=== PATIENT | male | born 1955 | race Caucasian/White ===

== ENCOUNTER 2018-10-25 18:29 | Emergency (ER) | payer OTHER ==
[2018-10-25] MEDS ORDERED: HYDROCODONE/APAP 5/325 TAB PO ONE (20:20)
[2018-10-25] MEDS ORDERED: AMOXICILLIN/CLAVULANATE POT 875/125 MG TAB PO ONE (20:20)
--- NOTE | 2018-10-25 20:25 | EDPHY ---
H & P Smoking Status: Never smoked Time Seen by Provider: 10/25/18 20:11 HPI/ROS: CHIEF COMPLAINT: Dog bite to left hand HISTORY OF PRESENT ILLNESS: Patient is a 63-year-old male here after being bit by his own dog at home today. He was bit on the left hand approximately 1 hr ago. He reports most pain to the base of the 3rd digit but also pain in the 2nd digit. He states he was trying to get his dog to lie down and is the dog bit him. He recently purchased the dog from the [employer]. Reports all shots are up-to-date. ROS As detailed in HPI (Nadeem Davey) Physical Exam: General: Alert and oriented. Nontoxic appearing. No acute distress HEENT: Pupils PERRLA. No oral lesions. Cardiopulmonary: Regular rate and rhythm. No lower extremity edema Skin: [place] warm and dry. Multiple superficial puncture wounds over the phalanx of the left hand and a 1 cm laceration over the proximal phalanx of the 3rd digit just distal to the MCP joint. There is no involvement of the joint. Muscle skeletal: Moving all 4 extremities. Equal strength in upper extremities and lower extremities. Full range of motion of all 5 digits in the left hand. Full sensation in all 5 digits. (Nadeem Davey) Constitutional: Initial Vital Signs Temperature (C) 36.8 C 10/25/18 18:45 Heart Rate 55 L 10/25/18 18:45 Respiratory Rate 16 10/25/18 18:45 Blood Pressure 159/101 H 10/25/18 18:45 O2 Sat (%) 94 10/25/18 18:45 O2 Delivery Mode Room Air Allergies/Adverse Reactions: clindamycin Allergy (Verified 10/25/18 18:45) Home Medications: Medication Instructions Recorded Amoxicillin/Clavulanate Pot 875 mg PO BID #14 tab 10/25/18 [Augmentin 875 MG TAB (*)] Valsartan 10/25/18 Medical Decision Making - Diagnostics Imaging Results: Imaging Impressions Hand X-Ray 10/25/18 20:19 Impression: No evidence for acute osseous abnormality left hand. No evidence for a radiopaque foreign body. ED Course/Re-evaluation: 63-year-old male here with dog bite to the left hand. He has no neurologic deficits that has full range of motion with normal strength of else's digits. X -ray reveals no bony injury. Exam also reveals no involvement of the joint or tendon. He is started on Augmentin after it was thoroughly irrigated. Splint was placed he will follow up in 2-3 days for wound re-evaluation and possible closure. (Nadeem Davey) I did not see this patient while he was in the emergency department. However his care was discussed with the PA while the patient was in the department. I agree with treatment plan and management (Bandar Soares) - Data Points Medications Given: Discontinued Medications Hydrocodone Bitart/Acetaminophen ([place] 5/325) 1 tab PO EDNOW ONE Stop: 10/25/18 20:21 Last Admin: 10/25/18 20:54 Dose: 1 tab Hydrocodone Bitart/Acetaminophen ([place] 5/325mg Prepack#6) 1 btl TAKEHOME EDNOW ONE Stop: 10/25/18 21:47 Last Admin: 10/25/18 21:54 Dose: 1 btl Amoxicillin/Clavulanate Potassium (Augmentin 875mg) 875 mg PO EDNOW ONE PRN Reason: Protocol Stop: 10/25/18 20:21 Last Admin: 10/25/18 20:54 Dose: 875 mg Departure - Departure Disposition: Home, Routine, Self-Care Clinical Impression: Dog bite of hand Condition: Good Instructions: Animal Bite (ED) Additional Instructions: Please wear the splint until you follow up in 2-3 days for wound check and possible wound closure. Take Augmentin the antibiotic twice a day for the next week to prevent infection. Return to the ER sooner if he develops fever, pus, redness around the wound. Referrals: Onur Massey MD [Primary Care Provider] - As per Instructions Prescriptions: Amoxicillin/Clavulanate Pot [Augmentin 875 MG TAB (*)] 875 mg PO BID #14 tab
[2018-10-25] MEDS ORDERED: HYDROCOD/APAP 5/325 PREPACK#6 BTL TAKEHOME ONE (21:46)
[2018-10-25 22:01] VITALS: BP 140/90
== END 2018-10-25 22:00 | disposition home or self-care (01) ==
PROC: 2W3FX1Z Immobilization of Left Hand using Splint (ICD-10-PCS; principal; 2018-10-25)
DX: S61.452A Open bite of left hand, initial encounter (principal); W54.0XXA Bitten by dog, initial encounter; Y93.K9 Activity, other involving animal care; Y92.9 Unspecified place or not applicable; Y99.9 Unspecified external cause status

== ENCOUNTER 2018-11-04 09:57 | Emergency (ER) | payer OTHER ==
[2018-11-04 10:02] VITALS: BP 138/87
--- NOTE | 2018-11-04 10:23 | EDPHY ---
HPI/HX/ROS/PE/MDM Narrative: CHIEF COMPLAINT: Left hand infection HPI: The patient is a 63 y/o male arriving with his complaining of increasing pain and swelling at the site of an infected dog bite on his left hand. He was bit by his newly adopted dog that is up-to-date on vaccinations 10 days ago and was seen in the ED that day. X-rays were negative for fracture, wound was cleaned, and he was started on Augmentin with referral to hand surgery for follow up. He developed an infection at the site that is now followed by Dr. Lerma. Dr. Lerma drained and cleaned the wound then packed it and refilled his Augmentin. Pain improved after this and drainage ceased. The wound was rechecked and packed a second time 2 days ago. Since then, he's developed increase pain around his 4th MCP joint extending towards his 3rd and 2nd digits and has noticed increased swelling and new drainage. He is scheduled for another follow up appointment and packing removal tomorrow, but due to worsening symptoms opted to come to the ED today. He denies fever or any other symptoms. REVIEW OF SYSTEMS: A comprehensive 10 system review of systems is otherwise negative aside from elements mentioned in the history of present illness. PMH: Hemochromatosis SOCIAL HISTORY: at bedside. Lives in [place]. Employed. Prior medical records reviewed including ED visit 10/25/18 for dog bite. PHYSICAL EXAM: General:Patient is alert, in no acute distress. ENT:Eyes are normal to inspection. ENT inspection normal. Neck: Normal inspection. Full range of motion. Respiratory:No respiratory distress. Cardiovascular: Normal cap refill. Skin: Normal color. No rash. Warm and dry. Extremities: Right hand: wound over dorsum of 4th MCP joint is partially sutured with packing in place that I removed. There is purulence in the open wound without eliot cellulitis. Tenderness extends to the base of the 3rd digit. No lymphangitis. Mild diffuse swelling. Normal appearance. Full range of motion. Neuro: Oriented x3. Normal motor function. Normal sensory function. ED Course: This is a 63 y/o male who presents with increasing pain, swelling, and drainage at the site of a dog bite that occurred 10 days ago. He is on Augmentin and is being treated by Dr. Andujar for this. Today, his pain worsened and is spreading from his 4th MCP joint towards his 2nd and 3rd digits. Plan to consult with Dr. Lerma, patient's hand specialist. 1028: Consulted with Jose David RIOS, ortho on-call for Dr. Lerma. He will contact the on-call physician and call me back. Dr. Morales, orthopedist, will assess patient in the ED. Dr. Morales assessed patient in the ED and does not recommend any changes to current treatment plan. Patient will be discharged with instructions to continue his Augmentin and follow up with his orthopedist tomorrow. Return precautions discussed. He is comfortable with this plan. General Time Seen by Provider: 11/04/18 10:10 Initial Vital Signs: Initial Vital Signs Temperature (C) 36.7 C 11/04/18 09:59 Heart Rate 67 11/04/18 09:59 Respiratory Rate 16 11/04/18 09:59 Blood Pressure 138/87 H 11/04/18 09:59 O2 Sat (%) 97 11/04/18 09:59 O2 Delivery Mode Room Air Allergies/Adverse Reactions: clindamycin Allergy (Verified 11/04/18 09:58) Home Medications: Medication Instructions Recorded Amoxicillin/Clavulanate Pot 875 mg PO BID #14 tab 10/25/18 [Augmentin 875 MG TAB (*)] Valsartan 10/25/18 Departure - Departure Disposition: Home, Routine, Self-Care Clinical Impression: Dog bite of hand Qualifiers: Encounter type: initial encounter Laterality: left Qualified Code(s): S61.452A - Open bite of left hand, initial encounter; W54.0XXA - Bitten by dog, initial encounter; W54.0XXA - Bitten by dog, initial encounter Condition: Good Instructions: Animal Bite (ED) Additional Instructions: 1. Continue Augmentin as prescribed. 2. Follow up with your orthopedist tomorrow as scheduled. 3. Return for worsening of condition. Referrals: Yonis Rodriguez MD [Medical Doctor] - As per Instructions Report Scribed for: José Rico Report Scribed by: Sandra Joseph Date of Report: 11/04/18 Time of Report: 10:23 Physician Review and Approval Statement: Portions of this note were transcribed by an ED scribe. I personally performed the history, physical exam, and medical decision making; and confirm the accuracy of the information in the transcribed note.
--- NOTE | 2018-11-04 20:41 | GCON ---
REASON FOR CONSULTATION: Left hand infection. HISTORY RELATIVE TO CONSULTATION: The patient is a 63-year-old who sustained a dog bite to his left hand. The patient developed an infection and underwent operative irrigation debridement. He is havi ng every other day wound packing and has been on oral antibiotics. He felt like his pain may be incr easing some today and presented to the emergency room. He additionally noted that there was some mur ky fluid discharge from his open wound. PHYSICAL EXAMINATION: SKIN: There is evidence of an incision along the dorsal aspect of the hand ad jacent to the 1st MCP joint. He is able to flex and extend his fingers with minimal discomfort. The re is no evidence of abscess or loculated fluid. With expression of fluid from the wound, a scant am ount of murky fluid is expressed. There is no evidence of any cellulitic changes extending proximall y or distally. ASSESSMENT: Left hand infection. PLAN: This does not appear to be significantly worsening nor to be putting his hand in danger. It d id not appear that an operative washout was warranted at this time. It was recommended that he luis nue his antibiotics and change his wound care regimen to daily instead of every other day. Use of a more dry gauze was additionally suggested. If he is having any worsening of symptoms, he will return to the emergency room at which point, an additional operative debridement may be considered. /[id number]/MODL
== END 2018-11-04 12:46 | disposition home or self-care (01) ==
DX: S61.452A Open bite of left hand, initial encounter (principal); W54.0XXA Bitten by dog, initial encounter; Y92.9 Unspecified place or not applicable; Y93.9 Activity, unspecified; Y99.9 Unspecified external cause status

== ENCOUNTER → 2019-03-20 | Outpatient (CLI) | payer OTHER | LOC: FIMAGING 08:46 | PROVIDERS: ATTEND Internal Medicine Hematology & Oncology | DX: E83.118 Other hemochromatosis (principal); K76.0 Fatty (change of) liver, not elsewhere classified ==